=== PATIENT | male | born 1930 | race Caucasian/White ===

== ENCOUNTER 2018-01-20 12:14 | Emergency (ER) | payer MEDICARE ==
[~2018-01-20] VITALS: Ht 175.3 cm; Wt 119.8 kg
[2018-01-20] MEDS ORDERED: ZITHROMAX250 MG PO (14:28)
--- NOTE | 2018-01-20 22:12 | EKG ---
[facility] [address] [facility] [place] [address] Signed Sinus rhythm with premature atrial complexes Moderate voltage criteria for LVH, may be normal variant T wave abnormality, consider lateral ischemia Abnormal ECG No previous ECGs available Confirmed by PRETTY ANTOINE MD ([id number] on 01/20/2018 10:11:48 PM Electronically Signed By: PRETTY ANTOINE MD 01/20/18 2212 PATIENT NAME: ANTOINEEDITA Electrocardiogram DATE OF : 32 PHYSICIAN: PRETTY ANTOINE MD REPORT #: [id number] REPORT IS CONFIDENTIAL AND NOT TO BE RELEASED WITHOUT AUTHORIZATION
== END 2018-01-20 14:35 | disposition home or self-care (01) ==
LOC: ED 12:14
DX: J40 Bronchitis, not specified as acute or chronic (principal); F03.90 Unspecified dementia, unspecified severity, without behavioral disturbance, psychotic disturbance, mood disturbance, and anxiety
CPT/HCPCS: 71045; 80053; 82803; 83880; 84484; 85025; 93005; 93010; 99284